=== PATIENT | male | born 1975 | race Two or more races ===

== ENCOUNTER 2019-12-27 09:05 | Emergency (ER) | payer SELFPAY ==
[~2019-12-27] VITALS: Ht 175.3 cm; Wt 88.5 kg
[2019-12-27] MEDS ORDERED: TETANUS-DIPTH-ACEL PERTUSSIS 0.5ML SYR Tdap IM ONE (10:30)
[2019-12-27] MEDS ORDERED: cefTRIAXone W LIDOCAINE 1 GM IM IM ONE (10:45)
[2019-12-27] MEDS ORDERED: cefTRIAXone SOD 1,000 MG VL ONE (13:27)
[2019-12-27 13:35] VITALS: BP 123/78
== END 2019-12-27 13:41 | disposition home or self-care (01) ==
LOC: ER 09:05
DX: S01.01XA Laceration without foreign body of scalp, initial encounter (principal); S01.111A Laceration without foreign body of right eyelid and periocular area, initial encounter; S09.90XA Unspecified injury of head, initial encounter; Y08.89XA Assault by other specified means, initial encounter; Y93.89 Activity, other specified; Y92.89 Other specified places as the place of occurrence of the external cause; Y99.8 Other external cause status
CPT/HCPCS: 12002; 12013; 70450; 70486; 90471; 90715; 96372; 99285; J0696